=== PATIENT | female | born 1985 | race Caucasian/White ===

== ENCOUNTER → 2016-09-13 | Emergency (ER) | payer OTHER ==
[~2016-09-13] MED LIST: Ondansetron 4 MG Tab.DIS PO ONE; Ondansetron 4 MG/2 ML SDV IVPUSH ONE
[2016-09-13 13:42] VITALS: BP 118/55
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
== END | disposition home or self-care (01) ==
LOC: JP.ED 13:37
DX: S06.0X0A Concussion without loss of consciousness, initial encounter (principal); S00.91XA Abrasion of unspecified part of head, initial encounter; R11.0 Nausea; F41.9 Anxiety disorder, unspecified; Z88.0 Allergy status to penicillin; Z96.22 Myringotomy tube(s) status; Z98.890 Other specified postprocedural states; W22.8XXA Striking against or struck by other objects, initial encounter
CPT/HCPCS: 99283; A9270